=== PATIENT | male | born 1975 | race American Indian/Alaskan Native ===

== ENCOUNTER 2021-08-28 21:52 | Emergency (ER) | payer SELFPAY ==
--- NOTE | 2021-08-28 22:06 | Emergency Department Report ---
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 Patient took a home COVID test that was positive today. She presents today for evaluation. Patient rates symptoms at 4/10 at this time. She states right lateral chest wall pain with deep in spiration and cough. She denies dizziness no lightheadedness no nausea no vomiting no shortness of breath or wheezing and has been no stridor. Symptoms are temporarily improved with albuterol inhaler. Patient denies shortness of breath at this time. Patient drove self to the emergency department patient is alert oriented x3 amatory with steady gait in no acute distress. - Related Data Previous Rx's Medication Instructions Recorded Last Taken Type Albuterol Mdi (or & Nicu Only) 2 puff IH QID PRN #8.5 gram 08/28/21 Unknown Rx [ProAir HFA Inhaler] Ibuprofen [Motrin 800 MG tab] 800 mg PO Q8HR PRN #30 tablet 08/28/21 Unknown Rx dexAMETHasone [Decadron] 4 mg PO Q8H 5 Days #15 tablet 08/28/21 Unknown Rx Allergies Allergy/AdvReac Type Severity Reaction Status Date / Time No Known Allergies Allergy Unverified 08/28/21 21:54 ED Review of Systems ROS: Stated complaint: HEAD, CP, COVID + Other details as noted in HPI Constitutional: chills, fever, malaise Eyes: denies: eye pain, eye discharge, vision change ENT: congestion. denies: ear pain, throat pain Respiratory: cough. denies: shortness of breath, wheezing Cardiovascular: chest pain (Right lateral chest wall pain) Endocrine: no symptoms reported Gastrointestinal: denies: abdominal pain, nausea, vomiting, diarrhea Genitourinary: denies: urgency, dysuria Musculoskeletal: denies: back pain, joint swelling, arthralgia Skin: denies: rash, lesions Neurological: denies: headache, weakness, numbness, paresthesias, vertigo Psychiatric: denies: anxiety, depression Hematological/Lymphatic: denies: easy bleeding, easy bruising ED Past Medical Hx - Medications Home Medications: Home Medications Medication Instructions Recorded Confirmed Last Taken Type Albuterol Mdi (or & Nicu Only) 2 puff IH QID PRN #8.5 gram 08/28/21 Unknown Rx [ProAir HFA Inhaler] Ibuprofen [Motrin 800 MG tab] 800 mg PO Q8HR PRN #30 tablet 08/28/21 Unknown Rx dexAMETHasone [Decadron] 4 mg PO Q8H 5 Days #15 tablet 08/28/21 Unknown Rx ED Physical Exam - General Limitations: No Limitations General appearance: alert, in no apparent distress - Head Head exam: Present: normocephalic, normal inspection - Eye Eye exam: Present: PERRL, EOMI. Absent: conjunctival injection, nystagmus Pupils: Present: normal accommodation - ENT ENT exam: Present: normal orophraynx, mucous membranes moist, TM's normal bilaterally - Neck Neck exam: Present: normal inspection, full ROM. Absent: tenderness, lymphadenopathy - Respiratory Respiratory exam: Present: normal lung sounds bilaterally, chest wall tenderness (Right anterior lateral chest wall pain is reproducible to deep palpation there is no crepitus no ecchymosis no erythema). Absent: respiratory distress, wheezes, rales, rhonchi, stridor, prolonged expiratory - Cardiovascular Cardiovascular Exam: Present: regular rate, normal rhythm, normal heart sounds. Absent: systolic murmur, diastolic murmur, rubs, gallop - GI/Abdominal GI/Abdominal exam: Present: soft, normal bowel sounds. Absent: distended, tenderness, guarding, rebound, rigid, bruit, hernia - Rectal Rectal exam: Present: deferred - Extremities Exam Extremities exam: Present: normal inspection, full ROM, normal capillary refill - Back Exam Back exam: Present: normal inspection, full ROM. Absent: CVA tenderness (R), CVA tenderness (L) - Neurological Exam Neurological exam: Present: alert, oriented X3, CN II-XII intact, normal gait - Expanded Neurological Exam Expanded Patient oriented to: Present: person, place, time Speech: Present: fluid speech Motor strength exam: RUE: 5, LUE: 5, RLE: 5, LLE: 5 Best Eye Response (Raquel): (4) open spontaneously Best Motor Response (Raquel): (6) obeys commands Best Verbal Response ([place]): (5) oriented Raquel Total: 15 - Psychiatric Psychiatric exam: Present: normal affect, normal mood - Skin Skin exam: Present: warm, dry, intact, normal color. Absent: rash ED Medical Decision Making - EKG Data EKG shows normal: sinus rhythm, axis, intervals, QRS complexes, ST-T waves Rate: normal - EKG Data When compared to previous EKG there are: previous EKG unavailable Interpretation: normal EKG (NS no STEMI ekg interp by ed attending. ) - Radiology Data Radiology results: report reviewed, image reviewed CHEST 2 VIEWS INDICATION / CLINICAL INFORMATION: cough fever. COMPARISON: None available. FINDINGS: SUPPORT DEVICES: None. HEART / MEDIASTINUM: No significant abnormality. LUNGS / PLEURA: No significant pulmonary or pleural abnormality. No pneumothorax. ADDITIONAL FINDINGS: No significant additional findings. IMPRESSION: 1. No acute findings. Signer Name: Taz Resendez MD Signed: 08/28/2021 10:34 PM Workstation Name: [id number] Transcribed By: DT Dictated By: Keith Resendez MD Electronically Authenticated By: Keith Resendez MD Signed Date/Time: 08/28/212233 - Medical Decision Making Chest x-ray is normal no opacities no infiltrates. Given positive COVID test p matteo DC to home with prescriptions. Continue as directed. Follow-up with In 2 to 3 days call advise or COVID status prior to appointment. Return to emergency department should symptoms worsen. Critical care attestation.: If time is entered above; I have spent that time in minutes in the direct care of this critically ill patient, excluding procedure time. ED Disposition Clinical Impression: Viral illness Disposition: HOME / SELF CARE / HOMELESS Is pt being admited?: No Does the pt Need Aspirin: No Condition: Stable Instructions: Viral Illness, Adult Additional Instructions: Quarantine as directed. Hydrate as directed. Take all medications as prescribed. Follow-up with your doctor in 2 to 3 days. Call prior to appointment advised with COVID status. Return to emergency department if symptoms worsen. Prescriptions: dexAMETHasone [Decadron] 4 mg PO Q8H 5 Days #15 tablet Ibuprofen [Motrin 800 MG tab] 800 mg PO Q8HR PRN #30 tablet PRN Reason: pain fever Albuterol Mdi (or & Nicu Only) [ProAir HFA Inhaler] 2 puff IH QID PRN #8.5 gram PRN Reason: Shortness Of Breath Referrals: SHANI DURBIN MD [Staff Physician] - 7-10 days Forms: Work/School Release Form(ED) Time of Disposition: 23:07
--- NOTE | 2021-08-28 22:38 | XRay Report ---
CHEST 2 VIEWS INDICATION / CLINICAL INFORMATION: cough fever. COMPARISON: None available. FINDINGS: SUPPORT DEVICES: None. HEART / MEDIASTINUM: No significant abnormality. LUNGS / PLEURA: No significant pulmonary or pleural abnormality. No pneumothorax. ADDITIONAL FINDINGS: No significant additional findings. IMPRESSION: 1. No acute findings. Signer Name: Taz Resendez MD Signed: 08/28/2021 10:34 PM Workstation Name: [id number]
[2021-08-28 23:02] VITALS: BP 170/90
--- NOTE | 2021-08-31 09:19 | Electrocardiograph Report ---
[facility] Test Date: 2021-08-28 Test Time: 22:05:41 Pat Name: RODOLFO YOUNG Department: Room: Gender: M Skiver Blockers: LOLA : 1975 Requested By: MOOKIE HARRISON Order Number: [id number] Reading MD: Augustine Rogers Measurements Intervals [place] Rate: 64 P: 7 DC: 161 QRS: -9 QRSD: 90 T: -9 QT: 363 QTc: 376 Interpretive Statements Sinus rhythm No previous ECG available for comparison Electronically Signed On 08-31-2021 9:19:21 EST by Augustine Rogers
== END 2021-08-28 23:12 | disposition home or self-care (01) ==
LOC: ED 21:52
DX: B34.9 Viral infection, unspecified (principal)
CPT/HCPCS: 71046; 93005; 99283